=== PATIENT | male | born 1935 | race Caucasian/White ===

== ENCOUNTER 2018-07-08 01:14 | Observation (INO) ==
[2018-07-08 01:47] LABS: Basophils % 0.3 % (0.0-0.8); Eosinophils # 0.2 10*3/uL (0.0-0.87); Eosinophils % 2.3 % (0.00-10.9); Hematocrit 39.1 VOL% (42.0-52.0); Hemoglobin 12.9 GM/DL (14.0-18.0); Immature Granulocytes % 0.1 %; Immature Granulocytes Absolute 0.01 #; Lymphocytes # 1.1 10*3/uL (1.4-4.0); Mean Corpuscular Hemoglobin 31 PG (27-34); Mean Corpuscular Volume 93.3 FL (87-102); Mean Platelet Volume 10.7 FL (9.6-12.0); Monocytes # 0.8 10*3/uL (0.11-0.8); Monocytes % 10.7 % (1.7-12.7); Neutrophils # 5.4 10*3/uL (1.4-7.4); Neutrophils % 71.6 % (38.7-73.9); Platelet Count 128 T/CUMM (130-400); Red Blood Count 4.19 MC/CUMM (3.8-5.5); White Blood Count 7.5 T/CUMM (4-12)
[2018-07-08 01:57] LABS: PT Patient Result 11.3 SECS; Partial Thromboplastin Time 26.9 SECS (0-40)
[2018-07-08 02:05] LABS: Albumin 3.7 G/DL (3.4-5.0); Bilirubin,Total 0.7 MG/DL (0.2-1.0); Potassium 4.2 MMOL/L (3.5-5.1); Total Protein 6.2 G/DL (6.4-8.3)
[2018-07-08] MEDS ORDERED: ASPIRIN 325 MG TABLET PO STA (04:14)
[2018-07-08] MEDS ORDERED: ENOXAPARIN 100 MG/ML SYRINGE SUBCUT STA (04:14)
[2018-07-08] MEDS ORDERED: ONDANSETRON 4 MG/2 ML VIAL IV PRN (04:16)
[2018-07-08] MEDS ORDERED: ACETAMINOPHEN 325 MG TABLET PO PRN (04:16)
[2018-07-08] MEDS ORDERED: MORPHINE 4 MG/1 ML VIAL IV PRN (04:16)
[2018-07-08] MEDS ORDERED: ENOXAPARIN 40 MG/0.4 ML SYRINGE SUBCUT SCH (04:30)
[2018-07-08] MEDS: ENOXAPARIN 80 MG/0.8 ML SYRINGE SUBCUT SCH ×2 (07:28→16:17)
[2018-07-08] MEDS: SODIUM CHLORIDE 0.9% 1,000 ML IV SCH ×3 (08:00→18:41)
[2018-07-08] MEDS ORDERED: ASPIRIN 325 MG TABLET PO SCH (09:00)
[2018-07-08] MEDS: ASPIRIN EC 81 MG TABLET PO SCH (09:21)
[2018-07-08] MEDS: PANTOPRAZOLE 40 MG TABLET PO SCH (09:21)
[2018-07-08] MEDS: NIACIN 500 MG TABLET PO SCH ×3 (09:21→21:11)
[2018-07-08] MEDS: METOPROLOL TARTRATE 25 MG TABLET PO SCH ×2 (09:21→21:10)
[2018-07-08 11:12] LABS: Troponin I 0.193 NG/ML (0.00-0.045)
[2018-07-08] MEDS ORDERED: SIMVASTATIN 40 MG TABLET PO SCH (19:00)
[2018-07-08] MEDS: TAMSULOSIN 0.4 MG CAPSULE PO SCH (23:19)
[2018-07-09] MEDS: SODIUM CHLORIDE 0.9% 1,000 ML IV SCH (03:45)
[2018-07-09 04:57] LABS: Basophils % 0.3 % (0.0-0.8); Eosinophils # 0.2 10*3/uL (0.0-0.87); Hematocrit 34.2 VOL% (42.0-52.0); Hemoglobin 11.1 GM/DL (14.0-18.0); Immature Granulocytes % 0.3 %; Immature Granulocytes Absolute 0.02 #; Lymphocytes % 14.8 % (21.2-54.2); Mean Corpuscular HGB Conc 32.5 GM/DL (32-36); Mean Corpuscular Hemoglobin 30 PG (27-34); Mean Corpuscular Volume 93.7 FL (87-102); Mean Platelet Volume 11.6 FL (9.6-12.0); Monocytes # 0.4 10*3/uL (0.11-0.8); Monocytes % 6.7 % (1.7-12.7); Neutrophils # 4.8 10*3/uL (1.4-7.4); Neutrophils % 74.9 % (38.7-73.9); Platelet Count 115 T/CUMM (130-400); Red Blood Count 3.65 MC/CUMM (3.8-5.5); Red Cell Distribution Width 13.9 % (9.3-17.3); White Blood Count 6.4 T/CUMM (4-12)
[2018-07-09] MEDS: ENOXAPARIN 80 MG/0.8 ML SYRINGE SUBCUT SCH (05:14)
[2018-07-09 05:15] LABS: Calcium 8.1 MG/DL (8.5-10.1); Potassium 3.7 MMOL/L (3.5-5.1)
[2018-07-09 05:19] LABS: Calcium 8.1 MG/DL (8.5-10.1); Osmolality,Calculated 280.3 MOS/KG (273-304); Potassium 3.6 MMOL/L (3.5-5.1); Risk Ratio 2.45
[2018-07-09 07:40] VITALS: BP 156/76
[2018-07-09] MEDS ORDERED: NIACIN 500 MG TABLET PO SCH (09:00)
[2018-07-09] MEDS: PANTOPRAZOLE 40 MG TABLET PO SCH (09:06)
[2018-07-09] MEDS: ASPIRIN EC 81 MG TABLET PO SCH (09:06)
[2018-07-09] MEDS: METOPROLOL TARTRATE 25 MG TABLET PO SCH (09:07)
[2018-07-09] MEDS: TAMSULOSIN 0.4 MG CAPSULE PO SCH (09:09)
== END 2018-07-09 10:00 | disposition home or self-care (01) ==
LOC: N.EDINP 01:14 → N.ED 01:14 → SUATTDRO 04:16 → N.EDINP 06:44 → N.2E 07:17
PROVIDERS: ADMIT Internal Medicine; ATTEND Hospitalist

== ENCOUNTER 2019-10-28 11:33 | Observation (INO) ==
[2019-10-28] MEDS ORDERED: SODIUM CHLORIDE 0.9% 1,000 ML IV STA (11:51)
[2019-10-28 12:30] LABS: Basophils % 0.1 % (0.0-0.8); Eosinophils % 0.1 % (0.00-10.9); Hematocrit 31.9 VOL% (42.0-52.0); Immature Granulocytes % 0.7 %; Immature Granulocytes Absolute 0.14 #; Lymphocytes # 0.3 10*3/uL (1.4-4.0); Lymphocytes % 1.7 % (21.2-54.2); Mean Corpuscular HGB Conc 31.3 GM/DL (32-36); Mean Corpuscular Volume 88.4 FL (87-102); Mean Platelet Volume 9.8 FL (9.6-12.0); Neutrophils % 94.4 % (38.7-73.9); Platelet Count 187 T/CUMM (130-400); Red Blood Count 3.61 MC/CUMM (3.8-5.5); Red Cell Distribution Width 16.1 % (9.3-17.3); White Blood Count 19.5 T/CUMM (4-12)
[2019-10-28 12:44] LABS: INR 1.2; PT Patient Result 12.4 SECS (9.8-11.9); Partial Thromboplastin Time 33.4 SECS (23.9-33.8)
[2019-10-28 12:50] LABS: Albumin 1.8 G/DL (3.4-5.0); Bilirubin,Total 0.6 MG/DL (0.2-1.0); Calcium 8.2 MG/DL (8.5-10.1); Osmolality,Calculated 275.5 MOS/KG (273-304); Total Protein 5.3 G/DL (6.4-8.3)
[2019-10-28 12:54] LABS: Band Neutrophils 5 % (0-10); Lymphocytes 5 % (20-55); Segmented Neutrophils 90 % (50-85); Total Cells Counted 100
[2019-10-28 12:58] LABS: Hypochromasia Slight; Microcytosis Slight; Platelet Estimate Normal
[2019-10-28 13:20] LABS: Apearance,Urine Slightly Hazy (Clear); Bilirubin,Urine Negative (Negative); Blood, Urine Negative (Negative); Glucose,Urine (UA) Negative (Negative); Hyaline Casts,Urine 6 /LPF (0-3); Ketones,Urine Negative (Negative); Mucus,Urine Occasional /LPF (Occasional); Nitrite,Urine Negative (Negative); Protein,Urine 30 MG/DL; RBC,Urine 1 /HPF (0-4); Squamous Epithelial Cell,Urine Occasional /HPF (0-10); Urine Color Amber (Yellow); Urine Specific Gravity 1.018 (1.001-1.035); WBC,Urine 4 /HPF (0-6)
[2019-10-28] MEDS ORDERED: DEXAMETHASONE 10 MG/1 ML VIAL IV STA (13:50)
[2019-10-28] MEDS ORDERED: DEXTROSE 50% 25 GM/50 ML VIAL IV PRN (14:00)
[2019-10-28] MEDS ORDERED: GLUCAGON 1 MG VIAL IM PRN (14:00)
[2019-10-28] MEDS ORDERED: LACTULOSE 20 GM/30 ML UDCUP PO PRN (14:00)
[2019-10-28] MEDS ORDERED: ONDANSETRON 4 MG/2 ML VIAL IV PRN (14:00)
[2019-10-28] MEDS ORDERED: MORPHINE 4 MG/1 ML VIAL IV PRN (14:00)
[2019-10-28] MEDS ORDERED: ACETAMINOPHEN 325 MG TABLET PO PRN (14:00)
[2019-10-28] MEDS: SODIUM CHLORIDE 0.9% 1,000 ML IV SCH ×2 (14:47→23:00)
[2019-10-28] MEDS ORDERED: DEXAMETHASONE 4 MG/1 ML VIAL IV SCH (15:30)
[2019-10-28] MEDS ORDERED: LORazepam 2 MG/1 ML VIAL IV PRN (16:25)
[2019-10-28] MEDS: ALBUTEROL/IPRATROPIUM 3 ML NEB RESP TX SCH (20:00)
[2019-10-29] MEDS: ALBUTEROL/IPRATROPIUM 3 ML NEB RESP TX SCH ×2 (00:30→07:05)
[2019-10-29] MEDS: DEXAMETHASONE 4 MG/1 ML VIAL IV SCH ×2 (00:54→05:34)
[2019-10-29 06:33] LABS: Basophils % 0.1 % (0.0-0.8); Hematocrit 29.4 VOL% (42.0-52.0); Hemoglobin 9.2 GM/DL (14.0-18.0); Immature Granulocytes Absolute 0.12 #; Lymphocytes # 0.2 10*3/uL (1.4-4.0); Lymphocytes % 1.7 % (21.2-54.2); Mean Corpuscular HGB Conc 31.3 GM/DL (32-36); Mean Corpuscular Volume 89.6 FL (87-102); Monocytes % 1.6 % (1.7-12.7); Neutrophils % 95.6 % (38.7-73.9); Platelet Count 148 T/CUMM (130-400); Red Blood Count 3.28 MC/CUMM (3.8-5.5); White Blood Count 12.1 T/CUMM (4-12)
[2019-10-29 07:04] LABS: Calcium 8.1 MG/DL (8.5-10.1); Thyroid Stimulating Hormone 0.501 uIU/ml (0.358-3.74)
[2019-10-29 07:57] LABS: Band Neutrophils 1 % (0-10); Lymphocytes 2 % (20-55); Platelet Estimate Adequate; Segmented Neutrophils 95 % (50-85); Total Cells Counted 100
[2019-10-29 07:58] LABS: Anisocytosis Slight; Macrocytosis Slight
[2019-10-29] MEDS ORDERED: FERROUS SULFATE 325 MG TABLET PO SCH (09:00)
[2019-10-29] MEDS ORDERED: ASPIRIN EC 81 MG TABLET PO SCH (09:00)
[2019-10-29 10:38] VITALS: BP 108/68
== END 2019-10-29 11:50 | disposition hospice, home (50) ==
LOC: N.EDINP 11:33 → N.ED 11:33 → SUATTDRO 14:00 → N.4E 15:43
PROVIDERS: ADMIT Internal Medicine; ATTEND Internal Medicine